=== PATIENT | female | born 1995 | race Hispanic/Latino ===

== ENCOUNTER 2020-07-27 08:29 | Emergency (ER) | payer OTHER, SELFPAY ==
--- OUTSIDE RECORDS SUMMARY | 2020-07-27 08:31 | XMS REPORT | Continuity of Care Document ---
:1995 Author Organization [facility] t Address [address] [place] [address] Care Team Providers Name Role Phone Silver Attending Clinician Problems This patient has no known problems. Allergies, Adverse Reactions, Alerts This patient has no known allergies or adverse reactions. Medications This patient has no known medications. Procedures This patient has no known procedures. Encounters Start End Encounter Admission Attending Care Care Encounter Source Date/Time Date/Time Type Type Clinicians Facility Department ID 2019-10-17 2019-10-17 [facility] [id number] [id number] 08:32:00 10:26:00 [place] [place] [id number] [place] [id number] [place] [id number] Results This patient has no known results.
[2020-07-27 09:31] LABS: Urine Blood Negative (Negative); Urine Glucose Negative (Negative); Urine Protein Negative (Negative); Urine pH 8.5 (5.0-7.0)
[2020-07-27 09:44] LABS: Absolute Lymphocytes (CBC) 1.1 K/uL (0.7-4.9); Basophils % 0.4 % (0-1.3); Hematocrit 37.3 % (36.0-45.0); Lymphocytes % 7.3 % (15.3-44.8); RBC Red Blood Cell Count 5.18 M/uL (3.86-4.86)
[2020-07-27] MEDS ORDERED: ONDANSETRON 4 MG/2 ML VIAL ONE (09:53)
[2020-07-27] MEDS ORDERED: NA CHLORIDE 0.9% 1,000 ML ONE (09:53)
[2020-07-27] MEDS ORDERED: MORPHINE 4 MG/ML SYR ONE (09:53)
[2020-07-27 09:55] LABS: ALT/SGPT 42 U/L (12-78); AST/SGOT 42 U/L (15-37); Albumin 3.8 g/dL (3.4-5.0); Alkaline Phosphatase 150 U/L (45-117); BUN Blood Urea Nitrogen 10 mg/dL (7-18); Bicarbonate 27 mmol/L (21-32); Bilirubin Direct < 0.1 mg/dL (0-0.2); Bilirubin Total 0.5 mg/dL (0.2-1.0); Glucose Level 109 mg/dL (74-106); Lipase 46 U/L (73-393); Potassium 3.9 mmol/L (3.5-5.1); Protein, Total 7.9 g/dL (6.4-8.2); Sodium Level 139 mmol/L (136-145)
[2020-07-27 10:02] LABS: Urine Bacteria <20 /HPF (<20); Urine RBC <5 /HPF (NONE SEEN)
--- NOTE | 2020-07-27 10:41 | RAD REPORT ---
EXAM DESCRIPTION: CT - Abdomen Pelvis W Contrast - 07/27/2020 10:28 am CLINICAL HISTORY: Abd pain;Flank pain COMPARISON: CT ABD PELVIS W CONTRAST dated 10/11/2012 TECHNIQUE: Biphasic, helical CT imaging of the abdomen and pelvis was performed following 100 ml non -ionic IV contrast. No oral contrast administered. All CT scans are performed using dose optimization technique as appropriate and may include automated exposure control or mA/KV adjustment according to patient size. FINDINGS: No suspicious findings in the lung bases. The liver, spleen, and pancreas show no suspicious findings. Cholecystectomy clips are present. No bi liary tree dilatation. Symmetric renal function is seen with no hydronephrosis or suspicious renal mass. No pyelonephritis o r acute parenchymal process. No bladder abnormalities. No adrenal abnormalities. Uterus and ovaries s how no suspicious findings. No gastric dilatation or wall thickening. Small bowel loops are not dilated. Distal small bowel loops are fluid-filled and show subtle or mild enhancement of the carrera. Fluid is seen in the right-side o f the colon. No colon mass or colon wall thickening identifiable. Appendix is normal. No free air, free fluid or inflammatory stranding. No hernia, mass or bulky lymphadenopathy. No suspicious bony findings. IMPRESSION: Mild enteritis pattern with no other emergent finding.
--- NOTE | 2020-07-27 10:55 | ER ---
Nurse's Notes [facility] Name: Rosemarie Enriquez Age: 25 yrs Sex: Female : 1995 Arrival Date: 07/27/2020 Time: 08:30 Bed 14 Private MD: Diagnosis: Vomiting;Diarrhea, unspecified;Unspecified abdominal pain Presentation: 07/27 08:41 Chief complaint: Patient states: Epigastric pain with N/V/D started at 3 am. R lower ll1 back pain now also. No fever. Coronavirus screen: Client denies travel out of the [place] in the last 14 days. At this time, the client does not indicate any symptoms associated with coronavirus-19. Ebola Screen: Patient denies travel to an Ebola-affected area in the 21 days before illness onset. Initial Sepsis Screen: Does the patient meet any 2 criteria? No. Patient's initial sepsis screen is negative. Does the patient have a suspected source of infection? Yes: Acute abdominal pain. Risk Assessment: Do you want to hurt yourself or someone else? Patient reports no desire to harm self or others. Onset of symptoms was July 27, 2020. 08:41 Method Of Arrival: Ambulatory ll1 08:41 Acuity: FLYNN 3 ll1 Historical: - Allergies: 08:41 VERONICA; ll1 - PMHx: 08:41 Kidney stones; Ovarian cyst; ll1 - PSHx: 08:41 Tonsillectomy; ; ll1 08:42 Cholecystectomy; ll1 - Immunization history:: Flu vaccine is up to date. - Social history:: Smoking status: Patient denies any tobacco usage or history of. Screenin:30 Abuse screen: Denies threats or abuse. Denies injuries from another. Nutritional jl7 screening: No deficits noted. Tuberculosis screening: No symptoms or risk factors identified. Fall Risk IV access (20 points). Assessment: 09:30 General: Appears in no apparent distress. uncomfortable, Behavior is calm, cooperative, jl7 appropriate for age. Pain: Complains of pain in right flank Pain radiates to right lower quadrant Pain currently is 8 out of 10 on a pain scale. Is continuous. Neuro: Level of Consciousness is awake, alert, obeys commands, Oriented to person, place, time, situation. Cardiovascular: Patient's skin is warm and dry. Respiratory: Airway is patent Respiratory effort is even, unlabored, Respiratory pattern is regular, symmetrical. GI: Abdomen is round non-distended. : Reports pain in right flank(s). Derm: Skin is pink, warm \T\ dry. 10:30 Reassessment: Patient appears in no apparent distress at this time. No changes from jl7 previously documented assessment. Patient and/or family updated on plan of care and expected duration. Pain level reassessed. Patient is alert, oriented x 3, equal unlabored respirations, skin warm/dry/pink. Vital Signs: 08:41 BP 124 / 54; Pulse 96; Resp 17; Temp 98.3; Pulse Ox 100% ; Weight 114.31 kg; Height 5 ll1 ft. 4 in. (162.56 cm); Pain 8/10; 09:56 BP 111 / 74; Pulse 81; Resp 15; Pulse Ox 100% ; jl7 10:30 BP 105 / 65; Pulse 78; Resp 15; Pulse Ox 98% ; jl7 08:41 Body Mass Index 43.26 (114.31 kg, 162.56 cm) ll1 ED Course: 08:30 Patient arrived in ED. as 08:40 Arm band placed on. ll1 08:42 Triage completed. ll1 09:09 Imtiaz Varner NP is PHCP. pm1 09:09 Cosmo Love MD is Attending Physician. pm1 09:09 Patient placed in an exam room, on a stretcher. ll1 09:14 Sydney Parker MD is Attending Physician. pm1 09:26 Poncho Arita RN is Primary Nurse. jl7 09:30 Patient has correct armband on for positive identification. Bed in low position. Call [facility] light in reach. Side rails up X 1. 09:32 Initial lab(s) drawn, by me, sent to lab. Inserted saline lock: 20 gauge in right em1 antecubital area, using aseptic technique. Blood collected. 10:28 CT Abd/Pelvis - IV Contrast Only In Process Unspecified. EDMS 11:14 No provider procedures requiring assistance completed. IV discontinued, intact, jl7 bleeding controlled, No redness/swelling at site. Pressure dressing applied. Administered Medications: 09:35 Drug: NS 0.9% 1000 ml Route: IV; Rate: 1000 ml; Site: right antecubital; jl7 11:00 Follow up: Response: No adverse reaction; IV Status: Completed infusion; IV Intake: jl7 200ml 09:35 Drug: Zofran (Ondansetron) 4 mg Route: IVP; Site: right antecubital; jl7 10:00 Follow up: Response: No adverse reaction jl7 09:35 Drug: morphine 4 mg Route: IVP; Site: right antecubital; jl7 10:00 Follow up: Response: No adverse reaction; Pain is decreased jl7 Intake: 11:00 IV: 200ml; Total: 200ml. 7 Outcome: 10:54 Discharge ordered by MD. pm1 11:14 Discharged to home ambulatory. jl7 11:14 Condition: stable 11:14 Discharge instructions given to patient, Instructed on discharge instructions, follow up and referral plans. medication usage, Demonstrated understanding of instructions, follow-up care, medications, Prescriptions given X 4. 11:15 Patient left the ED. Signatures: Dispatcher [employer] EDMS Lorie Montoya Eric em1 Imtiaz Varner, SUPERVISOR BLOOMING MILL SUPERVISOR BLOOMING MILL pm1 Poncho Arita, LEXIE RN jl7 Marylou Raymond, LEXIE RN ll1 Corrections: (The following items were deleted from the chart) 09:56 09:30 BP 111 / 74; Pulse 81bpm; Resp 15bpm; Pulse Ox 100%; jl7 jl7
--- NOTE | 2020-07-27 10:55 | EDPHYS ---
Physician Documentation [facility] Name: Rosemarie Enriquez Age: 25 yrs Sex: Female : 1995 Arrival Date: 07/27/2020 Time: 08:30 Bed 14 Private MD: ED Physician Sydney Parker HPI: 07/27 09:17 This 25 yrs old Female presents to ER via Ambulatory with complaints of Flank pm1 Pain, Vomiting. 09:17 The patient complains of pain in the right low back. The pain does not radiate. Onset: pm1 The symptoms/episode began/occurred this morning. Modifying factors: The symptoms are alleviated by nothing. the symptoms are aggravated by nothing. Associated signs and symptoms: Pertinent positives: diarrhea, nausea, vomiting, abdoinal pain epigastric area, Pertinent negatives: fever. Severity of pain: in the emergency department the pain is actually worse. The patient has not experienced similar symptoms in the past. The patient has not recently seen a physician. Historical: - Allergies: 08:41 VERONICA; ll1 - PMHx: 08:41 Kidney stones; Ovarian cyst; ll1 - PSHx: 08:41 Tonsillectomy; ; ll1 08:42 Cholecystectomy; ll1 - Immunization history:: Flu vaccine is up to date. - Social history:: Smoking status: Patient denies any tobacco usage or history of. ROS: 09:17 Constitutional: Negative for fever, chills, and weight loss. pm1 09:17 Cardiovascular: Negative for chest pain, palpitations, and edema, Respiratory: Negative for shortness of breath, cough, wheezing, and pleuritic chest pain. 09:17 Eyes: Negative for injury, pain, redness, and discharge, ENT: Negative for injury, pain, and discharge. 09:17 : Negative for injury, bleeding, discharge, and swelling, MS/Extremity: Negative for injury and deformity, Skin: Negative for injury, rash, and discoloration, Neuro: Negative for headache, weakness, numbness, tingling, and seizure. 09:17 Abdomen/GI: Positive for abdominal pain, nausea, vomiting, and diarrhea, Negative for constipation. 09:17 Back: Positive for flank pain, on the right. Exam: 09:17 Constitutional: This is a well developed, well nourished patient who is awake, alert, pm1 and in no acute distress. Head/Face: Normocephalic, atraumatic. 09:17 Back: No spinal tenderness. No costovertebral tenderness. Full range of motion. Skin: Warm, dry with normal turgor. Normal color with no rashes, no lesions, and no evidence of cellulitis. MS/ Extremity: Pulses equal, no cyanosis. Neurovascular intact. Full, normal range of motion. 09:17 Eyes: Exam is negative for acute changes, Extraocular movements: no acute changes, Conjunctiva: normal, no injection, Sclera: no acute changes, icterus, is not appreciated. 09:17 ENT: Mouth: Lips: normal, Oral mucosa: normal, pink and intact, moist. 09:17 Cardiovascular: Rate: normal, Rhythm: regular, Pulses: no pulse deficits are appreciated. 09:17 Respiratory: Exam negative for acute changes, respiratory distress, shortness of breath. 09:17 Abdomen/GI: Inspection: obese Palpation: abdomen is soft and non-tender, in all quadrants. 09:17 Neuro: Exam negative for acute changes, Orientation: is normal, Mentation: is normal, Motor: is normal, moves all fours, Sensation: is normal, no obvious gross deficits. Vital Signs: 08:41 BP 124 / 54; Pulse 96; Resp 17; Temp 98.3; Pulse Ox 100% ; Weight 114.31 kg; Height 5 ll1 ft. 4 in. (162.56 cm); Pain 8/10; 09:56 BP 111 / 74; Pulse 81; Resp 15; Pulse Ox 100% ; jl7 10:30 BP 105 / 65; Pulse 78; Resp 15; Pulse Ox 98% ; jl7 08:41 Body Mass Index 43.26 (114.31 kg, 162.56 cm) ll1 MDM: 09:18 Patient medically screened. pm1 10:53 Data reviewed: vital signs. Data interpreted: Pulse oximetry: on room air is 100 %. pm1 Interpretation: normal. 10:53 Counseling: I had a detailed discussion with the patient and/or guardian regarding: the pm1 historical points, exam findings, and any diagnostic results supporting the discharge/admit diagnosis, lab results, radiology results, the need for outpatient follow up, to return to the emergency department if symptoms worsen or persist or if there are any questions or concerns that arise at home. 07/27 09:17 Order name: Basic Metabolic Panel; Complete Time: 10:06 pm1 07/27 09:17 Order name: CBC with Diff; Complete Time: 11:03 pm1 07/27 09:17 Order name: Hepatic Function; Complete Time: 10:06 pm1 07/27 09:17 Order name: Lipase; Complete Time: 10:06 pm1 07/27 09:17 Order name: Urine Microscopic Only; Complete Time: 10:06 pm1 07/27 09:31 Order name: Urine Dipstick-Ancillary; Complete Time: 10:06 EDMS 07/27 09:17 Order name: IV Saline Lock; Complete Time: 09:32 pm1 07/27 09:17 Order name: Labs collected and sent; Complete Time: 09:32 pm1 07/27 09:17 Order name: CT Abd/Pelvis - IV Contrast Only; Complete Time: 10:42 pm1 07/27 09:32 Order name: Urine --Ancillary (enter results) ar 07/27 10:57 Order name: CBC Smear Scan; Complete Time: 11:03 EDMS 07/27 09:17 Order name: Urine Dipstick-Ancillary (obtain specimen); Complete Time: 09:32 pm1 07/27 09:17 Order name: Urine Test (obtain specimen); Complete Time: 09:32 pm1 Administered Medications: 09:35 Drug: NS 0.9% 1000 ml Route: IV; Rate: 1000 ml; Site: right antecubital; 7 11:00 Follow up: Response: No adverse reaction; IV Status: Completed infusion; IV Intake: jl7 200ml 09:35 Drug: Zofran (Ondansetron) 4 mg Route: IVP; Site: right antecubital; jl7 10:00 Follow up: Response: No adverse reaction jl7 09:35 Drug: morphine 4 mg Route: IVP; Site: right antecubital; jl7 10:00 Follow up: Response: No adverse reaction; Pain is decreased jl7 Disposition: 07/27/20 10:54 Discharged to Home. Impression: Vomiting, Diarrhea, unspecified, Unspecified abdominal pain. - Condition is Stable. - Discharge Instructions: Abdominal Pain, Adult, Diarrhea, Adult, Nausea and Vomiting, Adult. - Prescriptions for Zofran ODT 4 mg Oral tablet,disintegrating - place 1 tablet by TRANSLINGUAL route every 8 hours As needed; 15 tablet. Bentyl 20 mg Oral Tablet - take 1 tablet by ORAL route every 6 hours As needed; 20 tablet. Flagyl 500 mg Oral Tablet - take 1 tablet by ORAL route every 12 hours for 7 days; 14 tablet. Cipro 500 mg Oral Tablet - take 1 tablet by ORAL route every 12 hours for 7 days; 14 tablet. - Medication Reconciliation Form, Thank You Letter, Antibiotic Education, Prescription Opioid Use, Work release form form. - Follow up: Emergency Department; When: As needed; Reason: Worsening of condition. Follow up: Private Physician; When: 2 - 3 days; Reason: Recheck today's complaints, Continuance of care, Re-evaluation by your physician. - Problem is new. - Symptoms have improved. Signatures: Dispatcher [employer] EDMS Imtiaz Varner, NIR CRUSHER SCREEN REPAIRER pm1 Poncho Arita RN RN jl7 Marylou Raymond RN RN ll1 Corrections: (The following items were deleted from the chart) 10:54 10:54 07/27/2020 10:54 Discharged to Home. Impression: Vomiting; Diarrhea, unspecified. pm1 Condition is Stable. Forms are Medication Reconciliation Form, Thank You Letter, Antibiotic Education, Prescription Opioid Use. Follow up: Emergency Department; When: As needed; Reason: Worsening of condition. Follow up: Private Physician; When: 2 - 3 days; Reason: Recheck today's complaints, Continuance of care, Re-evaluation by your physician. Problem is new. Symptoms have improved. pm1 11:15 10:54 07/27/2020 10:54 Discharged to Home. Impression: Vomiting; Diarrhea, unspecified; jl7 Unspecified abdominal pain. Condition is Stable. Forms are Medication Reconciliation Form, Thank You Letter, Antibiotic Education, Prescription Opioid Use. Follow up: Emergency Department; When: As needed; Reason: Worsening of condition. Follow up: Private Physician; When: 2 - 3 days; Reason: Recheck today's complaints, Continuance of care, Re-evaluation by your physician. Problem is new. Symptoms have improved. pm1
[2020-07-27 10:57] LABS: Anisocytosis 1+; Blood Morphology Comment NOTED (NOT SEEN); Platelet Estimate ADEQ; White Blood Cell Scan OK (OK)
[2020-07-27 11:35] VITALS: TEMP 98.3
[2020-07-27 11:38] VITALS: BP 105/65; O2SAT 98
== END 2020-07-27 11:15 | disposition home or self-care (01) ==
LOC: ER 08:29
DX: R10.13 Epigastric pain (principal); R19.7 Diarrhea, unspecified; R11.2 Nausea with vomiting, unspecified
CPT/HCPCS: 36415; 74177; 80048; 80076; 81003; 81015; 81025; 83690; 85025; 96361; 96374; 96375; 99284; J2405; J7030; Q9967

== ENCOUNTER 2024-04-30 08:10 | Emergency (ER) | payer BC, SELFPAY ==
--- OUTSIDE RECORDS SUMMARY | 2024-04-30 08:14 | XMS REPORT | Continuity of Care Document ---
Author Name Unknown Address [address] [facility] [place] [address] [facility] Address [address] [facility] [address] [place] [address] Care Team Providers Care Websphere Commerce Developer Name Role Phone PCP, PATIENT DOES NOT HAVE A Primary Care Physic susi Unavailable Augie Herrmann Attending Clinician Unavailable JOSE ARMANDO ALAS Attending Clinician Unavailable JOSE ARMANDO ALAS Attending Clinician Unavailable Caute Silver DO Attending Clinician [phone] JOSE ARMANDO ALAS Admitting Clinician Unavailable Payers Payer Name Policy Type Policy Number Effective Date Expirati on Date Source [facility] [id number] 2015 00:00:00 [place] [id number] 2016 00:00:00 Blue Cross Blue Shield HMO 6 [id number] 2021 00:00:00 [facility] BLUE ADVANTAGE HMO [id number] 2021 00:00:00 Problems Condition Name Condition Details Condition Category Status Onset Date Resolution Date Last Treatment Date Treating Clinician Comments Source care and examinatio n of lactating mother care and examinatio n of lactating mother Disease Active 2015-02 00:00: 00 [facility] Anemia of mother in , condition Anemia of mother in , condition Disease Active 2015-02 00:00: 00 [facility] Susceptibl e to varicella (non-immun e), currently Susceptibl e to varicella (non-immun e), currently Disease Active 09-17 00:00: 00 [facility] [id number] Microcytic anemia Problem [facility] [id number] Current mild episode of major depressive disorder without prior episode Problem [facility] [id number] Leukocytos is, unspecifie d type Problem [facility] [id number] ELAYNE (generaliz ed anxiety disorder) Problem [facility] [id number] Depression with anxiety Problem [facility] premature rupture of membranes (PPROM) with onset of labor within 24 hours of rupture in third trimester, antepartum premature rupture of membranes (PPROM) with onset of labor within 24 hours of rupture in third trimester, antepartum Disease Resolve d 828 00:00: 00 2015-11-09 00:00:00 2015-11-09 13:35:03 [facility] premature rupture of membranes premature rupture of membranes Disease Resolve d 827 00:00: 00 2015-11-09 00:00:00 2015-11-09 13:35:06 [facility] Anemia of mother in , antepartum Anemia of mother in , antepartum Disease Resolve d 8-11 00:00: 00 2015-11-09 00:00:00 2015-11-09 13:34:55 [facility] Supervisio n of high-risk with insufficie nt care Supervisio n of high-risk with insufficie nt care Disease Resolve d 4-05 00:00: 00 2015-11-09 00:00:00 2015-11-09 13:35:08 [facility] Obesity affecting , antepartum Obesity affecting , antepartum Disease Resolve d 05-11 00:00: 00 2015-11-09 00:00:00 2015-11-09 13:34:57 [facility] Vaginal bleeding before 22 weeks gestation Vaginal bleeding before 22 weeks gestation Disease Resolve d 4 00:00: 00 2015-10-03 00:00:00 2015-10-03 12:16:28 [facility] Allergies, Adverse Reactions, Alerts Allergy Name Allergy Type Status Severity Reaction(s) Onset Date Inactive Date Treating Clinician Comments Source Veronica Propensi ty to adverse reaction s Active Hives 05-11 00:00: 00 [facility] VERONICA DRUG INGREDI Active Hives 05-11 00:00: 00 [facility] 1014 Drug allergy Active Unknown [facility] Social History Social Habit Start Date Stop Date Quantity Comments Source Exposure to SARS-CoV-2 (event) Not sure [facility] Sexual orientation U [facility] Sex Assigned At [facility] Alcoholic beverage intake 2023-09-06 00:00:00 2023-09-06 00:00:00 0 /d [facility] History of Social function 2023-09-06 00:00:00 2023-09-06 00:00:00 [facility] Alcohol intake 2019-10-17 00:00:00 2019-10-17 00:00:00 Current non-drinker of alcohol (finding) [facility] History of Tobacco Use 2013-03-08 00:00:00 2016-02-06 00:00:00 [facility] Tobacco use and exposure 2015-05-12 00:00:00 2015-05-12 00:00:00 Smokeless tobacco non-user [facility] Smoking Status Start Date Stop Date Source Former Smoker 2023-11-01 00:00:00 2023-11-01 00:00:00 [facility] Never smoked tobacco [facility] Medications Ordered Medication Name Filled Medication Name Start Date Stop Date Current Medication? Ordering Clinician Indication Dosage Frequency Signature (SIG) Comments Components Source iopamidol (ISOVUE 370-500 mL) injection 100 mL 09-05 08:00: 00 09-05 08:00 :00 No [id number] 100mL 100 mL, Intravenou s, ONCE, 1 dose, On Mon09/06/23 at 0300, Routine [facility] ketorolac (TORADOL) injection 30 mg 09-05 07:45: 00 09-05 06:45 :00 No 30mg 30 mg, Slow IV Push, ONCE, 1 dose, On Mon09/06/23 at 0245, Routine [facility] NaCl 0.9% (NS) IV infusion 1,000 mL 09-05 07:30: 00 09-05 08:02 :00 No 1000mL at 999 mL/hr, Intravenou s, ONCE, 1 dose, On Mon09/06/23 at 0230, Routine [facility] diphenhydrA MINE:lidoca ine 2% viscous:maa lox 1:1:1 ([facility]) oral suspension 15 mL 09-05 06:45: 00 09-05 06:43 :00 No 15mL 15 mL, Oral, ONCE, 1 dose, On Mon09/06/23 at 0145, Routine [facility] ondansetron (ZOFRAN (PF)) injection 4 mg 09-05 06:45: 00 09-05 06:43 :00 No 4mg 4 mg, Slow IV Push, ONCE, 1 dose, On Mon09/06/23 at 0145, NEELIMA [facility] pantoprazol e (PROTONIX) 40 mg EC tablet 09-05 00:00: 00 Yes [id number] 40mg Take 1 tablet by mouth in the morning. [facility] ondansetron (ZOFRAN) 4 mg tablet 09-05 00:00: 00 Yes [id number] 4mg Take 1 tablet by mouth every 8 (eight) hours as needed for Nausea and Vomiting (N/V). [facility] ketorolac (TORADOL) injection 30 mg 10-16 17:00: 00 10-17 16:59 :00 No 30mg 30 mg, Slow IV Push, Q6H, 4 doses, First dose on Mon10/17/19 at 1200, Last dose on Mon10/18/19 at 0600, Routine [facility] NaCl 0.9% (NS) bolus infusion 1,000 mL 10-16 14:45: 00 10-16 14:39 :00 No 1000mL at 999 mL/hr, 1,000 mL, IV Piggyback, ONCE, 1 dose, [facility] 10/17/19 at 0945, STAT [facility] ondansetron (ZOFRAN (PF)) injection 4 mg 10-16 13:45: 00 10-16 13:43 :00 No 4mg 4 mg, Slow IV Push, ONCE, 1 dose, [facility] 10/17/19 at 0845, Routine [facility] ketorolac 10 mg tablet 10-16 00:00: 00 Yes [id number] 10mg Take 1 tablet by mouth every 6 (six) hours as needed for Pain (scale 7-10). [facility] ondansetron 4 mg disintegrat ing tablet 10-16 00:00: 00 Yes [id number] 4mg Take 1 tablet by mouth every 8 (eight) hours as needed for Nausea and Vomiting (N/V). [facility] vitamin w/FA (PRENATABS RX) tablet 10-18 00:00: 00 Yes 1{tbl} Take 1 tablet by mouth daily. [facility] vitamin w/FA (PRENATABS RX) tablet 10-18 00:00: 00 Yes 1{tbl} Take 1 tablet by mouth daily. [facility] docusate calcium (SURFAK) 240 mg capsule 10-18 00:00: 00 Yes 240mg Take 1 capsule by mouth once daily as needed for Constipati on. [facility] ferrous sulfate 325 mg (65 mg iron) tablet 10-18 00:00: 00 Yes 325mg Take 1 tablet by mouth 2 (two) times daily. [facility] ibuprofen (MOTRIN) 600 mg tablet 10-18 00:00: 00 Yes 600mg Take 1 tablet by mouth every 6 (six) hours as needed for Pain (scale 4-6). Take with food or milk. [facility] ferrous sulfate 325 mg (65 mg iron) tablet 09-16 00:00: 00 Yes [id number] 325mg Take 1 tablet by mouth 2 (two) times daily. [facility] ascorbic acid, vitamin C, (VITAMIN C) 500 mg tablet 09-16 00:00: 00 Yes [id number] 500mg Take 1 tablet by mouth 3 (three) times daily. [facility] doxylamine- pyridoxine (DICLEGIS) 10-10 mg per tablet 06-01 00:00: 00 Yes [id number] 2 tab QHS, if nausea continues add one tab QAM, if still symptomati c take one with lunch, maximum of 4 tabs/day [facility] PNV without Ca-Iron PsCmplx-FA (SELECT-OB, FOLIC ACID,) 29-1 mg Chew 05-11 00:00: 00 Yes [id number] 09 1{each} Take 1 Each by mouth daily. [facility] PNV without Ca-Iron PsCmplx-FA (SELECT-OB, FOLIC ACID,) 29-1 mg Chew 05-11 00:00: 00 Yes [id number] 09 1{each} Take 1 Each by mouth daily. [facility] No Known Medications No Known Medications No [facility] Immunizations Ordered Immunization Name Filled Immunization Name Date Status Comments Source Varicella (varivax)(chicken pox) 2015-10-19 00:00:00 Completed [facility] TDAP 2015-09-16 00:00:00 Completed [facility] TDAP Unknown Completed [facility] Varicella (varivax)(chicken pox) Unknown Completed [facility] Fluarix (IIV3) - SDS - 0.5mL Fluarix (IIV3) - SDS - 0.5mL Unknown Completed [facility] Vital Signs Vital Name Observation Time Observation Value Comments S erik height 2023-11-01 15:00:00 63.0 [in_i] Comm on [facility] weight 2023-11-01 15:00:00 235.6 [lb_av] Co mmon [facility] temperature 2023-11-01 15:00:00 98.0 [degF] Com mon [facility] bmi 2023-11-01 15:00:00 41.73 kg/m2 [facility] oximetry 2023-11-01 15:00:00 98 % Commo n [facility] respiratory rate 2023-11-01 15:00:00 18 /min [facility] blood pressure systolic 2023-11-01 15:00:00 109 mm[Hg] [facility] blood pressure diastolic 2023-11-01 15:00:00 60 mm[Hg] [facility] Systolic blood pressure 2023-09-06 08:04:00 96 mm[Hg] [facility] Diastolic blood pressure 2023-09-06 08:04:00 59 mm[Hg] [facility] Heart rate 2023-09-06 08:04:00 68 /min [facility] Respiratory rate 2023-09-06 08:04:00 16 /min [facility] Oxygen saturation in Arterial blood by Pulse oximetry 2023-09-06 08:04:00 97 /min [facility] Body temperature 2023-09-06 04:14:00 37.11 Sunshine [facility] Body height 2023-09-06 04:14:[address] [facility] Body weight 2023-09-06 04:14:[address] [facility] BMI 2023-09-06 04:14:00 41.54 kg/m2 [facility] Systolic blood pressure 2019-10-17 14:15:00 110 mm[Hg] [facility] Diastolic blood pressure 2019-10-17 14:15:00 58 mm[Hg] [facility] Heart rate 2019-10-17 14:15:00 62 /min [facility] rate 2019-10-17 14:15:00 18 /min [facility] Oxygen saturation in Arterial blood by Pulse oximetry 2019-10-17 14:15:00 99 /min [facility] Body temperature 2019-10-17 13:31:00 36.33 Sunshine [facility] Body height 2019-10-17 13:31:[address] [facility] Body weight 2019-10-17 13:31:[address] [facility] BMI 2019-10-17 13:31:00 39.48 kg/m2 [facility] Systolic blood pressure 2019-10-17 14:15:00 110 mm[Hg] [facility] Diastolic blood pressure 2019-10-17 14:15:00 58 mm[Hg] [facility] Heart rate 2019-10-17 14:15:00 62 /min [facility] Respiratory rate 2019-10-17 14:15:00 18 /min [facility] Oxygen saturation in Arterial blood by Pulse oximetry 2019-10-17 14:15:00 99 /min [facility] Body temperature 2019-10-17 13:31:00 36.33 Sunshine [facility] Body height 2019-10-17 13:31:[address] [facility] Body weight 2019-10-17 13:31:[address] [facility] BMI 2019-10-17 13:31:00 39.48 kg/m2 [facility] Procedures Procedure Date / Time Performed Performing Clinicia n Source POCT TEST 2023-09-06 04:35:00 Jose Armando Alas [facility] LIPASE 2023-09-06 04:33:[address] [facility] COMP. METABOLIC PANEL (39565) 2023-09-06 04:33:00 Jose Armando Alas [facility] CBC WITH DIFF 2023-09-06 04:33:00 Jose Armando Alas [facility] URINALYSIS 2023-09-06 04:33:[address] [facility] CT ABDOMEN PELVIS WO CONTRAST 2019-10-17 14:03:56 Cuate Silver [facility] COMP. METABOLIC PANEL (54318) 2019-10-17 13:42:00 Cuate Silver [facility] CBC WITH DIFF 2019-10-17 13:42:00 Cuate Silver [facility] URINALYSIS 2019-10-17 13:42:00 Cuate Silvere [facility] POCT TEST 2019-10-17 13:36:00 Asad Silver [facility] CONSENT/REFUSAL FOR DIAGNOSIS AND TREATMENT 2019-10-17 13:25:51 Doctor Unassigned, [place] [facility] NOTICE OF PRIVACY PRACTICES 2019-10-17 13:25:36 Doctor Unassigned, [place] [facility] Encounters Start Date/Time End Date/Time Encounter Type Admission Type Attending [facility] Care Facility Care Department Encounter ID Source 2023-11-01 14:48:[address] [facility] [id number] [facility] 2020-12-04 16:46:34 Emergency [facility] [id number] [facility] 2023-11-01 00:00:00 2023-11-01 00:00:00 PREV VISIT EST AGE [age] [facility] [id number] [facility] 2023-09-05 23:19:00 2023-09-06 03:13:00 Emergency X JOSE ARMANDO ALAS [facility] ERT [id number] [facility] 2023-09-05 23:19:00 2023-09-06 03:13:00 Emergency Jose Armando Alas [facility] [id number] [facility] 2019-10-17 08:32:00 2019-10-17 10:26:00 Emergency [facility] [id number] 2019-10-17 08:32:00 2019-10-17 10:26:00 Emergency [facility] [id number] [facility] Results Test Description Test Time Test Comments Results Result Co mments Source [facility] [id number] 05:07:55* Test Item Value Reference Range Interpretation Comme nts LIPASE (test code = 5793439526) 74 U/L 0-220 Lab Interpretation (test cod e = 27097-2) Normal [facility] [id number] 04:54:50* Test Item Value Reference Range Interpretation Comme nts WBC (test code = 6690-2) 15.00 4.30-11.10 H RBC (test code = 789-8) 4.68 3.93-5.25 HGB (test code = 718-7) 11.3 g/dL 11.6-15.0 L HCT (test code = 4544-3) 37.3 % 35.7-45.2 MCV (test code = 787-2) 79.7 fL 80.6-95.5 L MCH (test code = 785-6) 24.1 pg 25.9-32.8 L MCHC (test code = 786-4) 30.3 g/dL 31.6-35.1 L RDW-SD (test code = 92808-1) 46.6 fL 39.0-49.9 RDW-CV (test code = 788-0) 16.2 % 12.0-15.5 H PLT (test code = 777-3) 396 166-358 H MPV (test code = 81417-9) 11.3 fL 9.5-12.9 NRBC/100 WBC (test code = 6595674018) 0.0 0.0-10.0 NRBC x10^3 (test code = 5465512163) See_Comment [Automated message] The system which generated this result transmitted reference range: 10*3/?L. The reference range was not used to interpret this result as normal/abnormal. GRAN MAT (NEUT) % (test code = 770-8) 67.0 % IMM GRAN % (test code = 8211878319) 0.30 % LYMPH % (test code = 736-9) 22.4 % MONO % (test code = 5905-5) 7.4 % EOS % (test code = 713-8) 2.6 % BASO % (test code = 706-2) 0.3 % GRAN MAT x10^3(ANC) (test code = 2911100837) 10.04 10*3/uL 1.88-7.09 H IMM GRAN x10^3 (test code = 3680433204) 0.05 10*3/uL 0.00-0.06 LYMPH x10^3 (test code = 731-0) 3.36 10*3/uL 1.32-3.29 H MONO x10^3 (test code = 742-7) 1.11 10*3/uL 0.33-0.92 H EOS x10^3 (test code = 711-2) 0.39 10*3/uL 0.03-0.39 BASO x10^3 (test code = 704-7) 0.05 10*3/uL 0.01-0.07 Lab Interpretation (test code = 02977-3) [facility]normal [facility] [id number] 04:35:00* Test Item Value Reference Range Interpretation Comme nts POCT PREG (test code = 1605) Negative On board controls acceptable with C Line (test code = 3574) Yes POCT PREG LOT # (test code = 3577) [id number] POCT PREG TEST DATE ( test code = 357) 2024-11-10 Lab Interpretation (test cod e = 09309-5) Normal [facility]2020-09-10 14:12:00* Test Item Value Reference Range Interpretation Comme nts APPEARANCE (test code = 5932175089) Clear Clear COLOR (test code = 7749692410) Colorless Yellow A PH (test code = 7892134414) 4.8-8.0 SP GRAVITY (test code = 5046167994) 1.003-1.030 L GLU U QUAL (test code = 9155692411) Normal Normal BLOOD (test code = 6876982716) Negative Negative KETONES (test code = 7860832573) Negative Negative PROTEIN (test code = 2887-8) Negative Negative UROBILIN (test code = 2314669105) Normal Normal BILIRUBIN (test code = 9549707112) Negative Negative NITRITE (test code = 8194249810) Negative Negative LEUK DEVAUGHN (test code = 1128882057) Negative Negative RBC/HPF (test code = 6562000579) See_Comment [Automated Musicplayr] The system which generated this result transmitted reference range: 0 - 3 HPF. The reference range was not used to interpret this result as normal/abnormal. WBC/HPF (test code = 0219639311) See_Comment [Automated Musicplayr] The system which generated this result transmitted reference range: 0 - 5 HPF. The reference range was not used to interpret this result as normal/abnormal. BACTERIA (test code = 9293811358) Negative Negative Lab Interpretation (test code = 52783-9) [facility]normal [facility] WO [id number] 14:10:16CT Abdomen and Pelvis without contrast. CLINICAL HISTORY: ?FLANK PAIN WITH HEMATURIA. R/O RENAL STONES. TECHNIQUE: Multidetector helical CT acquisition was obtained from the lungbases to the greater trochanters without oral and IV contrast. ?The imageswere reviewed in lung, bone, and soft tissue windows. FINDINGS: ?Absence of intravenous contrast limits evaluation of the solidorgans. Evaluation of the bowel is also limited by lack of oral contrast.Comparison is made with 10/30/2015 CT studies. Lower lungs: Clear. Liver, Gallbladder and Spleen: S/P cholecystectomy. Liver is enlarged,measuring approximately 19.3 cm. Spleen is also borderline enlarged,approximately 13.5 x 6.5 cm. Peritoneum: ?No free air or free fluid. No lymphadenopathy. Pancreas and Adrenals: ?Unremarkable pancreas and adrenal glands. Kidneys and Ureters: 2 mm stone noted in the middle calyx of the rightkidney. Faint increased attenuation is seen in the upper pole calyx of theright kidney without any additional well-formed kidney stone. No stonenoted in the left kidney. ?No hydroureter or hydronephrosis. ? Vessels: Normal. Retroperitoneum: No abnormal fluid or lymphadenopathy. Bowel: No acute findings. Normal appendix is visualized. Bladder ?and Reproductive Organs: 1 cm size cysts in the ovaries,consistent with physiologic changes. Bones: No acute findings. Soft tissues: Unremarkable. CONCLUSION:1. 2 mm stone in the right kidney.2. No stones in the left kidney. No hydronephrosis or hydroureter on eitherside.3. Mild hepatosplenomegaly. S/P cholecystectomy. [facility], Radiant Results Inft User - 10/17/2019 9:11 AMCDTCT Abdomen and Pelvis without contrast.CLINICAL HISTORY: FLANK PAIN WITH HEMATURIA. R/O RENAL STONES.TECHNIQUE: Multidetector helical CT acquisition was obtained from the lungbases to the greater trochanters without oral and IV contrast. The imageswere reviewed in lung, bone, and soft tissue windows.FINDINGS: Absence of intravenous contrast limits evaluation of the solidorgans. Evaluation of the bowel is also limited by lack of oral contrast.Comparison is made with 10/30/2015 CT studies. Lower lungs: Clear.Liver, Gallbladder and Spleen: S/P cholecystectomy. Liver is enlarged,measuring approximately 19.3 cm. Spleen is also borderline enlarged,approximately 13.5 x 6.5 cm.Peritoneum: No freeair or free fluid. No lymphadenopathy.Pancreas and Adrenals: Unremarkable pancreas and adrenal glands.Kidneys and Ureters: 2 mm stone noted in the middle calyx of the rightkidney. Faint increased attenuation is seen in the upper pole calyx of theright kidney without any additional well-formed kidney stone. No stonenoted in the left kidney. No hydroureter or hydronephrosis. Vessels: Normal.Retroper itoneum: No abnormal fluid or lymphadenopathy.Bowel: No acute findings. Normal appendix is visualized.Bladder and Reproductive Organs: 1 cm size cysts in the ovaries,consistent with physiologic changes. Bones: No acute findings.Soft tissues: Unremarkable.CONCLUSION:1. 2 mm stone in the right kidney.2. No stones in the left kidney. No hydronephrosis or hydroureter on eitherside.3. Mild hepatosplenomegaly. S/P cholecystectomy.[facility]. METABOLIC PANEL (39430)2019-10-17 14:02:00* Test Item Value Reference Range Interpretation Comme nts NA (test code = 5461847089) 141 mmol/L 135-145 K (test code = 5634982688) 3.9 mmol/L 3.5-5 CL (test code = 5273254745) 104 mmol/L 98-108 CO2 TOTAL (test code = 1016037553) 27 mmol/L 23-31 AGAP (test code = 2283732000) 2-16 BUN (test code = 2522547809) 12 mg/dL 7-23 GLUCOSE (test code = 3124775311) 111 mg/dL 70-110 H CREATININE (test code = 6133584403) 0.69 mg/dL 0.5-1.04 TOTAL BILI (test code = 2519951848) 0.4 mg/dL 0.1-1.1 CALCIUM (test code = 7528103849) 9.0 mg/dL 8.6-10.6 T PROTEIN (test code = 3857970746) 7.3 g/dL 6.3-8.2 ALBUMIN (test code = 0233030455) 4.0 g/dL 3.5-5 ALK PHOS (test code = 9798436012) 134 U/L 34-122 H ALTv (test code = 1742-6) 20 U/L 5-35 AST(SGOT) (test code = 3449291362) 22 U/L 13-40 eGFR Calculation (Non-) (test code = 0290926780) mL/min/1.73m2 eGFR Calculation () (test code = 8470563953) mL/min/1.73m2 ARASELI (test code = ARASELI) Association of Glomerular Filtration Rate (GFR) and Staging of Kidney Disease* + --+ --+ ------+| GFR (mL/min/1.73 m2) ?| With Kidney Damage ?| ?Without Kidney Damage+ --------+ --------+ +| ?>90 ?| ?Stage one ?| ? Normal ?+ ---+ ---+ -------+| ?60-89 ?| ?Stage two ?| ? Decreased GFR ? + --+ --+ ------+| ?30-59 ?| ?Stage three ?| ? Stage three ? + --+ --+ ------+| ?15-29 ?| ?Stage four ? | ? Stage four ?+ ---+ ---+ -------+| ?<15 (or dialysis) ? ?| ?Stage five ? | ? Stage five ?+ ---+ ---+ -------+ *Each stage assumes the associated GFR level has been in effect for at least three months. ?Stages 1 to 5, with or without kidney disease, indicate chronic kidney disease. Notes: Determination of stages one and two (with eGFR >59mL/min/1.73 m2) requires estimation of kidney damage for at least three months as defined by structural or functional abnormalities of the kidney, manifested by either:Pathological abnormalities or Markers of kidney damage (including abnormalities in the composition of the blood or urine or abnormalities in imaging tests). Lab Interpretation (test code = 32218-3) Abnormal [facility] WITH [id number] 13:55:00* Test Item Value Reference Range Interpretation Comme nts WBC (test code = 6690-2) See_Comment H [LocalBanya] The system which generated this result transmitted reference range: 4.30 - 11.10 10*3/?L. The reference range was not used to interpret this result as normal/abnormal. RBC (test code = 789-8) See_Comment [LocalBanya] The system which generated this result transmitted reference range: 3.93 - 5.25 10*6/?L. The reference range was not used to interpret this result as normal/abnormal. HGB (test code = 718-7) 11.2 g/dL 11.6-15 L HCT (test code = 4544-3) 36.5 % 35.7-45.2 MCV (test code = 787-2) 75.7 fL 80.6-95.5 L MCH (test code = 785-6) 23.2 pg 25.9-32.8 L MCHC (test code = 786-4) 30.7 g/dL 31.6-35.1 L RDW-SD (test code = 69266-4) 43.3 fL 39-49.9 RDW-CV (test code = 788-0) 15.9 % 12-15.5 H PLT (test code = 777-3) See_Comment [Automated messa ge] The system which generated this result transmitted reference range: 166 - 358 10*3/?L. The reference range was not used to interpret this result as normal/abnormal. MPV (test code = 05534-6) 10.4 fL 9.5-12.9 NRBC/100 WBC (test code = 1198367949) See_Comment [Automated me ssage] The system which generated this result transmitted reference range: 0.0 - 10.0 /100 WBCs. The reference range was not used to interpret this result as normal/abnormal. NRBC x10^3 (test code = 6367109904) <0.01 See_Comment [Automated messa ge] The system which generated this result transmitted reference range: 10*3/?L. The reference range was not used to interpret this result as normal/abnormal. GRAN MAT (NEUT) % (test code = 770-8) 71.7 % IMM GRAN % (test code = 1753256853) 0.30 % LYMPH % (test code = 736-9) 19.3 % MONO % (test code = 5905-5) 5.9 % EOS % (test code = 713-8) 2.4 % BASO % (test code = 706-2) 0.4 % GRAN MAT x10^3(ANC) (test code = 9232581719) 8.67 10*3/uL 1.88-7.09 H IMM GRAN x10^3 (test code = 6035272997) 0.04 10*3/uL 0-0.06 LYMPH x10^3 (test code = 731-0) 2.33 10*3/uL 1.32-3.29 MONO x10^3 (test code = 742-7) 0.71 10*3/uL 0.33-0.92 EOS x10^3 (test code = 711-2) 0.29 10*3/uL 0.03-0.39 BASO x10^3 (test code = 704-7) 0.05 10*3/uL 0.01-0.07 Lab Interpretation (test code = 40830-0) [id number]* Test Item Value Reference Range Interpretation Comme nts POCT PREG (test code = 1605) negative On board controls acceptable with C Line (test code = 3574) present POCT PREG LOT # (test code = 3575) [id number] POCT PREG TEST DATE ( test code = 3576) 2020-10-06 Lab Interpretation (test cod e = 45250-4) Normal [facility] Notes Date/Time Note Provider Source 2023-09-06 03:24:59 Awake, alert oriented X4, respiratory even and unlabored,skin w/d color appropriate for race, moves all ext well, pt encouraged to follow up with pcp and or return as needed Pt given printed and verbal discharge instructions regarding Acute gastritis without hemorrhage, epigastric pain, nausea and vomiting , patient verbralized understanding and signature obtained, patient denies any other concerns. Prescriptions provided Advised to seek medical attention for new/prolonged/worsening of symptoms, No adverse reaction to meds given in ER noted upon discharge Pt ambulated to the lobby with steady gait Wilma Mishra RN [facility] 2023-09-05 23:10:19 Pt arrives ambulatory to ED c/o vomiting since last night & stabbing epigastric that began around 1400 today. States she has vomited about 6x since it began. Pt reports that she has had her gallbladder removed. 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 Also reports subjective fever and chills at home. Pain is stabbing and localized to the epigastrium. Pain is 8/10 at maximal intensity and pt took Tylenol without relief. Food worsens pain. 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 used: No Abdominal Pain Pain location: Epigastric Pain quality: stabbing Pain radiates to: Does not radiate Pain severity: Severe Onset quality: Gradual Duration: 2 days Timing: Intermittent Progression: Unchanged Chronicity: New Context: not alcohol use, not awakening from sleep, not diet changes, not eating, not laxative use, not medication withdrawal, not previous surgeries, not recent illness, not recent travel, not retching, not sick contacts, not suspicious food intake and not trauma Relieved by: Nothing Worsened by: Eating Ineffective treatments: Acetaminophen Associated symptoms: chills, fever, nausea and vomiting Associated symptoms: no anorexia, no belching, no chest pain, no constipation, no cough, no diarrhea, no dysuria, no fatigue, no flatus, no hematemesis, no hematochezia, no hematuria, no melena, no shortness of breath, no sore throat, no vaginal bleeding and no vaginal discharge Risk factors: obesity Risk factors: no alcohol abuse, no aspirin use, not elderly, has not had multiple surgeries, no NSAID use, not and no recent hospitalization Past Medical History/Immunizations: Past Medical History: Diagnosis Date Anemia of mother in , antepartum 09/17/2015 Heart murmur Kidney stones Ovarian cyst Obesity Tetanus received in last 5 years: No Allergies: Allergies Allergen Reactions Veronica Hives Past Social History: Tobacco Use Never smoked or used smokeless tobacco. Alcohol Use No. Drug Use No. Sexual Activity Not sexually active; Control/Protection: None. Past Surgical History: Past Surgical History: Procedure Laterality Date SECTION N/A 10/17/2015 Surgeon: Jack Ferro MD; Location: Labor and Delivery - [facility] TONSILLECTOMY at age 13 Cholecystectomy 7 years ago Review of Systems: Review of Systems Constitutional: Positive for chills and fever. Negative for fatigue. HENT: Negative. Negative for sore throat. Eyes: Negative. Respiratory: Negative. Negative for cough and shortness of breath. Breasts: Negative. Cardiovascular: Negative. Negative for chest pain. Gastrointestinal: Positive for abdominal pain, nausea and vomiting. Negative for abdominal distention, anal bleeding, anorexia, blood in stool, constipation, diarrhea, flatus, hematemesis, hematochezia, melena and rectal pain. Genitourinary: Negative. Negative for dysuria, hematuria, vaginal bleeding and vaginal discharge. Musculoskeletal: Negative. Skin: Negative. Neurological: Negative. Psychiatric/Behavioral: Negative. Negative for hallucinations. All other systems reviewed and are negative. Endocrine: Endocrine negative Physical Exam: ED Triage Vitals [09/05/23 2314] Weight 109.8 kg (242 lb) Actual or estimated Estimated by patient/family report Height 1.626 m (5' 4") BP 116/82 Pulse 84 Resp 20 Temp 37.1 ?C (98.8 ?F) Temp source Oral SpO2 100 % Measured on Room air Physical Exam Vitals and nursing note reviewed. Constitutional: General: She is not in acute distress. Appearance: Normal appearance. She is well-developed. She is obese. She is not ill-appearing, toxic-appearing or diaphoretic. HENT: Head: Normocephalic and atraumatic. Nose: Nose normal. No congestion or rhinorrhea. Mouth/Throat: Mouth: Mucous membranes are moist. Pharynx: Oropharynx is clear. No oropharyngeal exudate or posterior oropharyngeal erythema. Eyes: General: No scleral icterus. Right eye: No discharge. Left eye: No discharge. Extraocular Movements: Extraocular movements intact. Conjunctiva/sclera: Conjunctivae normal. Pupils: Pupils are equal, round, and reactive to light. Neck: Thyroid: No thyromegaly. Cardiovascular: Rate and Rhythm: Normal rate and regular rhythm. Pulses: Normal pulses. Heart sounds: Normal heart sounds. No murmur heard. Pulmonary: Effort: Pulmonary effort is normal. No respiratory distress. Breath sounds: Normal breath sounds. No stridor. No wheezing or rales. Chest: Chest wall: No tenderness. Abdominal: General: Bowel sounds are normal. There is no distension. Palpations: Abdomen is soft. Tenderness: There is no abdominal tenderness. There is no right CVA tenderness, left CVA tenderness, guarding or rebound. Musculoskeletal: General: No swelling, tenderness, deformity or signs of injury. Normal range of motion. Cervical back: Normal range of motion and neck supple. No rigidity. Right lower leg: No edema. Left lower leg: No edema. Lymphadenopathy: Cervical: No cervical adenopathy. Skin: General: Skin is warm and dry. Capillary Refill: Capillary refill takes less than 2 seconds. Coloration: Skin is not jaundiced or pale. Findings: No bruising, erythema, lesion or rash. Neurological: General: No focal deficit present. Mental Status: She is alert and oriented to person, place, and time. Cranial Nerves: No cranial nerve deficit. Sensory: No sensory deficit. Motor: No weakness or abnormal muscle tone. Coordination: Coordination normal. Gait: Gait normal. Deep Tendon Reflexes: Reflexes normal. Psychiatric: Behavior: Behavior normal. Thought Content: Thought content normal. Judgment: Judgment normal. Radiology: CT ABDOMEN PELVIS W CONTRAST Preliminary Result EXAM: CT ABDOMEN PELVIS W CONTRAST HISTORY: 28 years-old Female; Provided indication: Nausea/vomiting Abdominal pain, acute, nonlocalized. TECHNIQUE: Contiguous axial imaging from the level of the lung bases through the proximal thighs was performed with intravenous contrast. Coronal and sagittal reconstructions were obtained. COMPARISON: 10/17/2019 FINDINGS: LOWER THORAX: The lung bases are clear. LIVER: The liver is enlarged measuring 21.2 cm in the maximum craniocaudal dimension. No focal hepatic lesion is seen. GALLBLADDER AND BILIARY TREE: Postsurgical changes of cholecystectomy are seen. No radiopaque gallstones are seen. No intra or extrahepatic biliary ductal dilation is visualized. SPLEEN: The spleen is enlarged to 13.7 cm. PANCREAS: No ductal dilation or masses are visualized. ADRENAL GLANDS: No adrenal masses are seen. KIDNEYS: No hydronephrosis, stones, or suspicious masses are visualized. PELVIS/BLADDER: The bladder is collapsed, which limits evaluation. GI TRACT: There is gastric wall edema particularly near the pylorus with minimal fatty stranding indicating gastritis. The appendix appears unremarkable (4:59). PERITONEUM AND RETROPERITONEUM: No intra-abdominal free air or fluid collection is visualized. LYMPH NODES: No lymphadenopathy. VESSELS: The vessels appear unremarkable. BONES AND SOFT TISSUES: No suspicious lytic or sclerotic bony lesions are present. IMPRESSION Gastritis. Hepatosplenomegaly. Otherwise no acute abdominopelvic findings. Preliminary Report Dictated by Resident: Eber Solano Lab Results: Lab Results CBC WITH DIFF - Abnormal Result Value Ref Range WBC 15.00 (*) 4.30 - 11.10 10*3/?L RBC 4.68 3.93 - 5.25 10*6/?L HGB 11.3 (*) 11.6 - 15.0 g/dL HCT 37.3 35.7 - 45.2 % MCV 79.7 (*) 80.6 - 95.5 fL MCH 24.1 (*) 25.9 - 32.8 pg MCHC 30.3 (*) 31.6 - 35.1 g/dL RDW-SD 46.6 39.0 - 49.9 fL RDW-CV 16.2 (*) 12.0 - 15.5 % PLT 396 (*) 166 - 358 10*3/?L MPV 11.3 9.5 - 12.9 fL NRBC/100 WBC 0.0 0.0 - 10.0 /100 WBCs NRBC x10 3 <0.01 10*3/?L GRAN MAT (NEUT) % 67.0 % IMM GRAN % 0.30 % LYMPH % 22.4 % MONO % 7.4 % EOS % 2.6 % BASO % 0.3 % GRAN MAT x10 3 (ANC) 10.04 (*) 1.88 - 7.09 10*3/uL IMM GRAN x10 3 0.05 0.00 - 0.06 10*3/uL LYMPH x10 3 3.36 (*) 1.32 - 3.29 10*3/uL MONO x10 3 1.11 (*) 0.33 - 0.92 10*3/uL EOS x10 3 0.39 0.03 - 0.39 10*3/uL BASO x10 3 0.05 0.01 - 0.07 10*3/uL URINALYSIS - Abnormal APPEARANCE Cloudy (*) Clear COLOR Yellow Yellow PH 8.0 4.8 - 8.0 SP GRAVITY 1.018 1.003 - 1.030 GLU U QUAL Normal Normal BLOOD Negative Negative KETONES Negative Negative PROTEIN 30 mg/dL (*) Negative UROBILIN Normal Normal BILIRUBIN Negative Negative NITRITE Negative Negative LEUK DEVAUGHN Negative Negative RBC/HPF 2 0 - 3 HPF WBC/HPF <1 0 - 5 HPF BACTERIA Negative Negative SQ EPITH 5 HPF LIPASE - Normal LIPASE 74 0 - 220 U/L POCT TEST - Normal POCT PREG Negative On board controls acceptable with C Line Yes POCT PREG LOT # [id number] POCT PREG TEST DATE 2024-11-10 COMP. METABOLIC PANEL (83863) NA 138 135 - 145 mmol/L K 3.7 3.5 - 5.0 mmol/L CL 103 98 - 108 mmol/L CO2 TOTAL 29 23 - 31 mmol/L AGAP 6 2 - 16 BUN 14 7 - 23 mg/dL GLUCOSE 94 70 - 110 mg/dL CREATININE 0.83 0.50 - 1.04 mg/dL TOTAL BILI 0.5 0.1 - 1.1 mg/dL CALCIUM 9.0 8.6 - 10.6 mg/dL T PROTEIN 7.9 6.3 - 8.2 g/dL ALBUMIN 4.5 3.5 - 5.0 g/dL ALK PHOS 119 34 - 122 U/L ALTv 22 5 - 35 U/L AST(SGOT) 21 13 - 40 U/L eGFR 99.2 mL/min/1.73m2 Orders and Treatments: Orders Placed This Encounter Procedures CT ABDOMEN PELVIS W CONTRAST Complete Metabolic Panel CBC with Differential Lipase, Serum Urinalysis POCT Test Orders Placed This Encounter Medications NaCl 0.9% (NS) IV infusion 1,000 mL ondansetron (ZOFRAN (PF)) injection 4 mg ketorolac (TORADOL) injection 30 mg diphenhydrAMINE:lidocaine 2% viscous:maalox 1:1:1 (FIRST-MOUTHWASH BLM) oral suspension 15 mL iopamidol (ISOVUE 370-500 mL) injection 100 mL pantoprazole (PROTONIX) 40 mg EC tablet ondansetron (ZOFRAN) 4 mg tablet First Provider Eval: ED Events Date/Time Event User Comments 09/05/232322 Medical Screening Begins JOSE ARMANDO ALAS MD -- 09/05/232322 First Provider Evaluation JOSE ARMANDO ALAS MD -- ED COURSE Diagnosis/Impression as of 09/06/23 0253 Generalized abdominal pain Acute gastritis without hemorrhage, unspecified gastritis type Epigastric pain Nausea and vomiting, unspecified vomiting type Procedures: Procedures MDM: Medical Decision Making Rosemarie Enriquez is a 28 year old female who presents to the ED with epigastric pain Problems Addressed: Acute gastritis without hemorrhage, unspecified gastritis type: acute illness or injury Epigastric pain: acute illness or injury Generalized abdominal pain: acute illness or injury Nausea and vomiting, unspecified vomiting type: acute illness or injury Amount and/or Complexity of Data Reviewed Labs: ordered. Decision-making details documented in ED Course. Radiology: ordered. Decision-making details documented in ED Course. Risk OTC drugs. Prescription drug management. Risk Details: Will refer to GI Flowsheet Documentation: Scoring Tools: No data recorded Disposition/Condition: ED Disposition ED Disposition Disch - Home Condition Stable Comment -- Discharge Medications: Patient's Medications START taking these medications ONDANSETRON (ZOFRAN) 4 MG TABLET Take 1 tablet by mouth every 8 (eight) hours as needed for Nausea and Vomiting (N/V). PANTOPRAZOLE (PROTONIX) 40 MG EC TABLET Take 1 tablet by mouth in the morning. CONTINUE taking these medications which have NOT CHANGED ASCORBIC ACID, VITAMIN C, (VITAMIN C) 500 MG TABLET Take 1 tablet by mouth 3 (three) times daily. DOCUSATE CALCIUM (SURFAK) 240 MG CAPSULE Take 1 capsule by mouth once daily as needed for Constipation. DOXYLAMINE-PYRIDOXINE (DICLEGIS) 10-10 MG PER TABLET 2 tab QHS, if nausea continues add one tab QAM, if still symptomatic take one with lunch, maximum of 4 tabs/day FERROUS SULFATE 325 MG (65 MG IRON) TABLET Take 1 tablet by mouth 2 (two) times daily. FERROUS SULFATE 325 MG (65 MG IRON) TABLET Take 1 tablet by mouth 2 (two) times daily. IBUPROFEN (MOTRIN) 600 MG TABLET Take 1 tablet by mouth every 6 (six) hours as needed for Pain (scale 4-6). Take with food or milk. KETOROLAC 10 MG TABLET Take 1 tablet by mouth every 6 (six) hours as needed for Pain (scale 7-10). ONDANSETRON 4 MG DISINTEGRATING TABLET Take 1 tablet by mouth every 8 (eight) hours as needed for Nausea and Vomiting (N/V). PNV WITHOUT CA-IRON PSCMPLX-FA (SELECT-OB, FOLIC ACID,) 29-1 MG CHEW Take 1 Each by mouth daily. VITAMIN W/FA (PRENATABS RX) TABLET Take 1 tablet by mouth daily. START taking Modified Medications as Prescribed No medications on file STOP taking these medications No medications on file Follow-up: Electronically signed by: Jose Armando Alas MD 09/06/23 0253 T [facility]
[2024-04-30] MEDS ORDERED: ONDANSETRON 4 MG/2 ML VIAL ONE (08:27)
[2024-04-30] MEDS ORDERED: FAMOTIDINE 20 MG/2 ML VIAL IV ONE (08:27)
[2024-04-30 08:43] LABS: Absolute Basophils 0.1 K/uL (0-0.5); Absolute Eosinophils 0.4 K/uL (0-0.5); Absolute Lymphocytes (CBC) 2.1 K/uL (0.7-4.9); Absolute Monocytes 0.9 K/uL (0.1-1.3); Absolute Neutrophil 8.8 K/uL (1.8-8.0); Basophils % 0.4 % (0-1.3); Eosinophils % 3.6 % (0-4.4); Hematocrit 32.8 % (36.0-45.0); Hemoglobin 10.2 g/dL (12.0-15.0); Lymphocytes % 16.7 % (15.3-44.8); MCH 21.8 pg (27.0-35.0); MCHC 31.1 g/dL (32.0-36.0); MCV 70.1 fL (80-100); MPV 8.2 fL (7.6-11.3); Monocytes % 7.5 % (3.3-12.3); Neutrophils % 71.8 % (41.7-73.7); Platelets 438 thou/uL (152-406); RBC Red Blood Cell Count 4.68 M/uL (3.86-4.86); Red Cell Distribution Width 17.2 % (12.1-15.2)
[2024-04-30] MEDS ORDERED: NA CHLORIDE 0.9% 1,000 ML ONE (08:53)
[2024-04-30 08:55] LABS: Sqamous Epithelial <5 /HPF (None Seen); Urine Bacteria <20 /HPF (<20); Urine Bilirubin NEGATIVE (Negative); Urine Blood Negative (Negative); Urine Clarity Turbid (Clear); Urine Color Light-Yellow (Yellow); Urine Culture Reflex Order NOT NEEDED; Urine Glucose NEGATIVE (Negative); Urine Ketones NEGATIVE (Negative); Urine Microscopic Reflex YN ORDER UMIC; Urine Mucus Slight /HPF (None Seen); Urine Nitrite NEGATIVE (Negative); Urine Protein NEGATIVE (Negative); Urine RBC None Seen /HPF (None Seen); Urine Urobilinogen Normal (Normal); Urine WBC <5 /HPF (<5); Urine pH 6.5 (5.0-7.0)
[2024-04-30 09:06] LABS: Albumin 3.3 g/dL (3.4-5.0); Albumin/Globulin Ratio 0.9 (1.1-1.8); Anion Gap 8.9 mEq/L (5.0-15.0); Bilirubin Total 0.3 mg/dL (0.2-1.0); Globulin 3.7 g/dL (2.3-3.5); Potassium 3.9 mEq/L (3.5-5.1)
--- NOTE | 2024-04-30 09:34 | RAD REPORT ---
EXAMINATION: Stone Protocol CLINICAL INDICATION: Female, 29 years old.right flank pain, hx of stones TECHNIQUE: CT abdomen and pelvis was performed, without IV contrast, as per department protocol. Axia l, sagittal and coronal reconstructions were obtained. One or more of the following dose reduction techniques were used: Automated exposure control, adjustment of the mA and/or kV according to the pat ient size, and/or iterative reconstruction. Unless otherwise specified, incidental findings do not require dedicated imaging follow-up. [id number]. IV CONTRAST: Not administered. COMPARISON: 07/27/2020 FINDINGS: The lack of intravenous contrast limits the sensitivity of this exam for evaluation of solid visceral organs, vascular structures, and retroperitoneum. LOWER CHEST: No acute process identified.No significant pericardial effusion. UPPER GI: No significant abnormality. LIVER: No significant focal abnormality. GALLBLADDER/BILE DUCTS: Cholecystectomy? PANCREAS: No mass, ductal dilation, or gerson-pancreatic fluid. SPLEEN: Unremarkable. ADRENALS: No adrenal masses. KIDNEYS AND URETERS: No hydronephrosis.No suspicious renal mass.Nonobstructing renal calculi.No urete ral calculi ABDOMINAL AORTA AND OTHER VESSELS: Normal caliber aorta and IVC. PERITONEUM: No abnormal free fluid. No free air. LYMPH NODES: No pathologic lymphadenopathy. ABDOMINAL WALL: Unremarkable SMALL BOWEL/COLON: Small bowel has normal course and caliber. No colonic wall thickening or pericolon ic inflammatory changes.Normal appendix. Mild diverticulosis without diverticulitis. URINARY BLADDER: Circumferential bladder wall thickening which could reflect cystitis. Correlate with urinalysis. REPRODUCTIVE ORGANS: Right adnexal cyst measuring 3.5 cm which is presumably physiologic. <= 5 cm N o follow-up imaging recommended MUSCULOSKELETAL: No acute or suspicious osseous abnormality. ADDITIONAL FINDINGS: None. IMPRESSION: No acute findings within the abdomen or pelvis. No urinary tract calculi. Possible cystitis. Correlate with urinalysis.
[2024-04-30 09:35] LABS: Anisocytosis 1+; Blood Morphology Comment NOTED (NOT SEEN); Hypochromasia 1+; Microcytosis 1+; Platelet Estimate ADEQ; White Blood Cell Scan OK (OK)
[2024-04-30 09:36] LABS: Ovalocytes 1+
--- NOTE | 2024-04-30 10:23 | ER ---
Nurse's Notes [facility] Name: Rosemarie Enriquez Age: 29 yrs Sex: Female : 1995 Arrival Date: 04/30/2024 Time: 08:10 Bed 7 Private MD: Diagnosis: UTI/ Urinary tract infection, site not specified Presentation: 04/30 08:28 Chief complaint: Patient states: right sided back pain that radiates to her abd with kc6 n/v. Coronavirus screen: At this time, the client does not indicate any symptoms associated with coronavirus-19. Ebola Screen: No symptoms or risks identified at this time. Initial Sepsis Screen: Does the patient meet any 2 criteria? No. Patient's initial sepsis screen is negative. Does the patient have a suspected source of infection? No. Patient's initial sepsis screen is negative. Risk Assessment: Do you want to hurt yourself or someone else? Patient reports no desire to harm self or others. Onset of symptoms was April 30, 2024. 08:28 Method Of Arrival: Ambulatory [facility] 08:28 Acuity: FLYNN 3 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 Historical: - Allergies: 08:29 VERONICA; 6 - PMHx: 08:29 Kidney stones; Ovarian cyst; 6 - PSHx: 08:29 section; Tonsillectomy; Cholecystectomy; kc6 - Immunization history:: Adult Immunizations up to date. - Infectious Disease History:: Denies. - Social history:: Smoking status: Patient denies any tobacco usage or history of. - Family history:: not pertinent. - Hospitalizations: : No recent hospitalization is reported. Screenin:30 [facility] ED Fall Risk Assessment (Adult) History of falling in the last 3 months, kc6 including since admission No falls in past 3 months (0 pts) Confusion or Disorientation No (0 pts) Intoxicated or Sedated No (0 pts) Impaired Gait No (0 pts) Mobility Assist Device Used No (0 pt) Altered Elimination No (0 pt) Score/Fall Risk Level 0 - 2 = Low Risk Oriented to surroundings, Maintained a safe environment. Abuse screen: Denies threats or abuse. Denies injuries from another. Nutritional screening: No deficits noted. Tuberculosis screening: No symptoms or risk factors identified. Assessment: 08:40 Pain: Complains of pain in right low back, right upper quadrant and right lower kc6 quadrant. Neuro: Level of Consciousness is awake, alert, obeys commands, Oriented to person, place, time, situation, Appropriate for age. Cardiovascular: Capillary refill < 3 seconds. Respiratory: Airway is patent Trachea midline Respiratory effort is even, unlabored, Respiratory pattern is regular, symmetrical. GI: Abdomen is round non-distended, Bowel sounds present X 4 quads. Abd is soft X 4 quads Abdomen is tender to palpation in right upper quadrant and right lower quadrant Reports lower abdominal pain, upper abdominal pain, nausea, vomiting, Patient currently denies diarrhea. : No signs and/or symptoms were reported regarding the genitourinary system. Urine is cloudy. EENT: No signs and/or symptoms were reported regarding the EENT system. Derm: No signs and/or symptoms reported regarding the dermatologic system. Skin is intact, is healthy with good turgor, Skin is pink, warm \T\ dry. Musculoskeletal: No signs and/or symptoms reported regarding the musculoskeletal system. Circulation, motion, and sensation intact. Range of motion: intact in all extremities. 09:28 Reassessment: Patient appears in no apparent distress at this time. No changes from kc6 previously documented assessment. Patient and/or family updated on plan of care and expected duration. Pain level reassessed. Patient is alert, oriented x 3, equal unlabored respirations, skin warm/dry/pink. 10:57 Reassessment: Patient appears in no apparent distress at this time. No changes from kc6 previously documented assessment. Patient and/or family updated on plan of care and expected duration. Pain level reassessed. Patient is alert, oriented x 3, equal unlabored respirations, skin warm/dry/pink. Vital Signs: 08:28 BP 115 / 68; Pulse 75; Resp 16 S; Temp 98.6(O); Pulse Ox 100% on R/A; Weight 108.86 kg kc6 (R); Height 5 ft. 4 in. (R); 09:28 BP 97 / 59; Pulse 55; Resp 18 S; Pulse Ox 97% on R/A; kc6 09:48 BP 92 / 48; Pulse 59; Resp 16 S; Pulse Ox 100% on R/A; kc6 09:55 BP 114 / 66; kc6 08:28 Body Mass Index 41.20 (108.86 kg, 162.56 cm) kc6 ED Course: 08:14 Patient arrived in ED. al6 08:14 Latrell Cuenca MD is Attending Physician. rn 08:17 Jennifer Mcgregor, LEXIE is Primary Nurse. kc6 08:27 Radiology exam delayed due to test not completed at this time. vm2 08:29 Triage completed. kc6 08:29 Arm band placed on. kc6 08:30 Patient has correct armband on for positive identification. Bed in low position. Call kc6 light in reach. Side rails up X 1. Adult w/ patient. Pulse ox on. NIBP on. Door closed. Noise minimized. Lights dimmed. Pillow given. Verbal reassurance given. 08:30 Patient maintains SpO2 saturation greater than 95% on room air. kc6 08:39 Initial lab(s) drawn, by me, sent to lab. Urine collected: clean catch specimen, kc6 cloudy. Inserted saline lock: 20 gauge in right forearm, using aseptic technique. Blood collected. Flushed with 10 mL NS. 09:10 CT Stone Protocol In Process Unspecified. EDMS 10:57 No provider procedures requiring assistance completed. IV discontinued, intact, kc6 bleeding controlled, No redness/swelling at site. Pressure dressing applied. Administered Medications: 08:39 Drug: Famotidine IVP 20 mg IVP once; dilute with 10 mL 0.9% NaCl; give over 2 minutes kc6 Route: IVP; Site: right forearm; 09:27 Follow up: Response: No adverse reaction kc6 08:39 Drug: Ondansetron IVP 4 mg IVP once; over 2 minutes Route: IVP; Site: right forearm; kc6 09:27 Follow up: Response: No adverse reaction; Nausea is decreased; Vomiting decreased kc6 08:55 Drug: NS 0.9% IV 1000 ml IV at 1000 ml once; to be given as a bolus over 60 minutes kc6 Route: IV; Rate: 1000 ml; Site: right forearm; 10:18 Follow up: Response: No adverse reaction; IV Status: Completed infusion; IV Intake: kc6 1000ml 10:43 Drug: Ciprofloxacin PO 500 mg PO once Route: PO; kc6 10:57 Follow up: Response: No adverse reaction kc Medication: 10:57 VIS not applicable for this client. kc6 Intake: 10:18 IV: 1000ml; Total: 1000ml. kc6 Outcome: 10:23 Discharge ordered by . rn 10:57 Discharged to home ambulatory, with significant other, kc6 10:57 Condition: good 10:57 Discharge instructions given to patient, significant other, Instructed on discharge instructions, follow up and referral plans. medication usage, Demonstrated understanding of instructions, follow-up care, medications, Prescriptions given X 2, 10:58 Patient left the ED. kc6 Signatures: Dispatcher [employer] EDMS Latrell Cuenca MD MD rn McGuire, Victoria vm2 Jennifer Mcgregor RN RN kc6 Stephanie Victor6
--- NOTE | 2024-04-30 10:23 | EDPHYS ---
Physician Documentation [facility] Name: Rosemarie Enriquez Age: 29 yrs Sex: Female : 1995 Arrival Date: 04/30/2024 Time: 08:10 Bed 7 Private MD: ED Physician Latrell Cuenca HPI: 04/30 09:17 This 29 yrs old Female presents to ER via Ambulatory with complaints of Back rn Pain, Nausea/Vomiting. 09:17 The patient presents with pain that is acute. The symptoms are located in the right mid rn back. Onset: The symptoms/episode began/occurred yesterday. The pain radiates to the abdomen. Modifying factors: The patient symptoms are alleviated by nothing, the patient symptoms are aggravated by nothing. Severity of symptoms: At their worst the symptoms were moderate, in the emergency department the symptoms have improved. The patient has experienced similar episodes in the past. Patient reports right flank pain that radiates to right abdomen since last night. Has history of kidney stones. Has already had cholecystectomy. Patient does report intermittent pains for the last few weeks associated with nausea in the morning. Denies . No trauma. No hematuria. No fever but does report subjective chills. No cough/shortness of breath/chest pain. FIRST SAMPLER: 08:29 LMP 04/05/2024, unknown kc6 Historical: - Allergies: 08:29 VERONICA; kc6 - PMHx: 08:29 Kidney stones; Ovarian cyst; kc6 - PSHx: 08:29 section; Tonsillectomy; Cholecystectomy; kc6 - Immunization history:: Adult Immunizations up to date. - Infectious Disease History:: Denies. - Social history:: Smoking status: Patient denies any tobacco usage or history of. - Family history:: not pertinent. - Hospitalizations: : No recent hospitalization is reported. ROS: 09:17 Constitutional: Negative for fever, positive for chills ENT: Negative for injury, pain, rn and discharge, Cardiovascular: Negative for chest pain, palpitations, and edema, Respiratory: Negative for shortness of breath, cough, wheezing, and pleuritic chest pain, Abdomen/GI: Positive for right sided flank and abdominal pain with nausea Back: Positive for right flank pain : Negative for injury, bleeding, discharge, and swelling, MS/Extremity: Negative for injury and deformity, Exam: 09:17 Constitutional: This is a well developed, well nourished patient who is awake, alert, rn and in no acute distress. Cardiovascular: Regular rate and rhythm. No pulse deficits. Respiratory: No increased work of breathing, no retractions or nasal flaring. Abdomen/GI: Soft, mild right-sided tenderness but does not make perceived pain any worse. No peritoneal signs or swelling. Negative Rocha. Back: No spinal tenderness. Vital Signs: 08:28 BP 115 / 68; Pulse 75; Resp 16 S; Temp 98.6(O); Pulse Ox 100% on R/A; Weight 108.86 kg kc6 (R); Height 5 ft. 4 in. (R); 09:28 BP 97 / 59; Pulse 55; Resp 18 S; Pulse Ox 97% on R/A; kc6 09:48 BP 92 / 48; Pulse 59; Resp 16 S; Pulse Ox 100% on R/A; kc6 09:55 BP 114 / 66; kc6 08:28 Body Mass Index 41.20 (108.86 kg, 162.56 cm) [facility] MDM: 08:14 Medical Screening Exam initiated rn 10:21 Differential diagnosis: Urinary tract infection, cystitis, pyelonephritis, kidney rn stone, ulcer. Data reviewed: vital signs, nurses notes, lab test result(s), radiologic studies, CT scan, and as a result, I will discharge patient. Counseling: I had a detailed discussion with the patient and/or guardian regarding the historical points, exam findings, and any diagnostic results supporting the discharge/admit diagnosis, lab results, radiology results, the need for outpatient follow up, to return to the emergency department if symptoms worsen or persist or if there are any questions or concerns that arise at home. Special discussion: I discussed with the patient/guardian in detail that at this point there is no indication for admission to the hospital. It is understood, however, that if the symptoms persist or worsen the patient needs to return immediately for re-evaluation. ED course: CT shows possible cystitis but no other acute finding. Specifically no kidney stone. No abnormality with liver. Patient already status postcholecystectomy. Will discharge home with antibiotics and nausea medication with return precautions. I have personally reviewed all of the results, including but not limited to blood tests and imaging deemed necessary to safely discharge this patient at this time. All results given to and printed out for patient. I personally went over all the results with the patient and answered all questions. Patient will follow-up with PCP and or specialist as discussed. Return precautions given and understood.. 04/30 08:24 Order name: CBC with Diff; Complete Time: 10:17 rn 04/30 08:24 Order name: CMP; Complete Time: 09:08 rn 04/30 08:24 Order name: Lipase; Complete Time: 09:08 rn 04/30 08:24 Order name: Test, Urine; Complete Time: 09:08 rn 04/30 08:24 Order name: Urinalysis w/ reflexes; Complete Time: 09:08 rn 04/30 09:36 Order name: CBC Smear Scan; Complete Time: 10:17 EDMS 04/30 08:24 Order name: CT Stone Protocol; Complete Time: 10:17 rn 04/30 08:24 Order name: IV Saline Lock; Complete Time: 08:39 rn 04/30 08:24 Order name: Labs collected and sent; Complete Time: 08:39 rn Administered Medications: 08:39 Drug: Famotidine IVP 20 mg IVP once; dilute with 10 mL 0.9% NaCl; give over 2 minutes kc6 Route: IVP; Site: right forearm; 09:27 Follow up: Response: No adverse reaction kc6 08:39 Drug: Ondansetron IVP 4 mg IVP once; over 2 minutes Route: IVP; Site: right forearm; kc6 09:27 Follow up: Response: No adverse reaction; Nausea is decreased; Vomiting decreased kc6 08:55 Drug: NS 0.9% IV 1000 ml IV at 1000 ml once; to be given as a bolus over 60 minutes kc6 Route: IV; Rate: 1000 ml; Site: right forearm; 10:18 Follow up: Response: No adverse reaction; IV Status: Completed infusion; IV Intake: kc6 1000ml 10:43 Drug: Ciprofloxacin PO 500 mg PO once Route: PO; kc6 10:57 Follow up: Response: No adverse reaction kc6 Disposition Summary: 04/30/24 10:23 Discharge Ordered Notes: Location: Home rn Problem: new rn Symptoms: have improved rn Condition: Stable rn Diagnosis - UTI/ Urinary tract infection, site not specified rn Followup: rn - With: Private Physician - When: As needed - Reason: Recheck today's complaints, Re-evaluation by your physician Discharge Instructions: - Discharge Summary Sheet rn - Urinary Tract Infection, Adult rn Forms: - Medication Reconciliation Form rn - Antibiotic varnish cooker - Prescription Opioid Use rn - Patient Portal Instructions rn - Leadership Thank You Letter rn - Work release form kc6 Prescriptions: - ondansetron 4 mg Oral Tablet,disintegrating - take 1 tablet ORAL route every 8 hours As needed; 10 tablet; Refills: 0, rn Product Selection Permitted - Cipro 500 mg Oral tablet - take 1 tablet ORAL route every 12 hours for 10 days; 20 tablet; Refills: 0, rn Product Selection Permitted Signatures: Dispatcher [employer] EDLatrell Valle MD MD rn Campbell, Kaitlyn, RN RN kc6 Corrections: (The following items were deleted from the chart) 08:25 08:25 CBC+H.LAB.BRZ ordered. EDMS EDMS 08:25 08:25 COMPREHENSIVE METABOLIC PANEL+C.LAB.BRZ ordered. EDMS EDMS 08:25 08:25 LIPASE+C.LAB.BRZ ordered. EDMS EDMS 08:25 08:25 Test, Urine+UC.LAB.BRZ ordered. EDMS EDMS 08:25 08:25 Urinalysis+U.LAB.BRZ ordered. EDMS EDMS 08:25 08:25 Stone Protocol+CT.RAD.BRZ ordered. EDMS EDMS
[2024-04-30] MEDS ORDERED: CIPROFLOXACIN HCL 500 MG TAB ONE (10:36)
[2024-04-30 11:08] VITALS: TEMP 98.6
[2024-04-30 11:19] VITALS: O2SAT 100
[2024-04-30 11:25] VITALS: BP 114/66
== END 2024-04-30 10:58 | disposition home or self-care (01) ==
LOC: ER 08:10
DX: N39.0 Urinary tract infection, site not specified (principal)
CPT/HCPCS: 36415; 74176; 76377; 80053; 81001; 81025; 83690; 85025; 96361; 96374; 96375; 99284; J2405; J7030